=== PATIENT | male | born 1960 | race Caucasian/White ===

== ENCOUNTER → 2017-02-11 | Outpatient (CLI) | payer BC ==
[~2017-02-11] MED LIST: ATOR-22 PO; METO100T14 PO; MULT-506 PO; OMEGCAP2 PO; PRED-301 PO; SERT1TAB72 PO
== END | disposition home or self-care (01) ==
LOC: C.PATHSPEC 18:08
PROVIDERS: ATTEND Plastic Surgery
DX: L72.0 Epidermal cyst (principal)

== ENCOUNTER → 2017-05-10 | Outpatient (CLI) | payer BC ==
[~2017-05-10] MED LIST changes: +GADAVIST IV PRN
--- NOTE | 2017-05-10 15:39 | DIAGNOSTIC IMAGING REPORT ---
CHEST COMBO CLINICAL HISTORY: 56 years-old Male presenting with brachial plexopathy, right arm pain for 4 to 5 months, primarily at elbow and forearm, EMG demonstrating shoulder abnormality, tingling in right arm, no known injury. TECHNIQUE: Multisequence, multiplanar MR imaging of the chest was performed before and after the administration of intravenous contrast. IV contrast: 8 mL of Gadavist. COMPARISON: None. FINDINGS: Localizer images: Unremarkable. Cervical spine demonstrates grossly normal alignment. No gross evidence of neural foraminal or spinal canal narrowing. No perineural cysts noted. Right supraclavicular fossa symmetric to the left. No mass lesion or lymphadenopathy. IMPRESSION: No abnormality of the right brachial plexus. Electronically signed by: Kirk Winkler M.D. 05/10/2017 3:38 PM Dictated Date/Time: 05/10/2017 3:31 PM
== END | disposition home or self-care (01) ==
LOC: C.MRI 14:04
PROVIDERS: ATTEND Internal Medicine
DX: G54.0 Brachial plexus disorders (principal)